=== PATIENT | male | born 1960 | race Caucasian/White ===

== ENCOUNTER 2020-09-15 14:01 | Emergency (ER) | payer BC ==
[2020-09-15 15:47] LABS: #Lymphocytes 0.5 thou/uL (1.20-3.40); #Monocytes 0.7 thou/uL (0.11-0.59); #Neutrophils 11.7 thou/uL (1.40-6.50); %Eosinophils 0.2 % (0.0-10.0); %Lymphocytes 3.6 % (21.0-51.0); %Monocytes 5.2 % (0.0-10.0); Hemoglobin 16.7 g/dL (14.0-18.0); Mean Corpuscular HGB CONC 33.9 g/dL (32.0-36.0); Mean Corpuscular Hemoglobin 31.6 pg (27.0-31.0); Mean Corpuscular Volume 93.4 fL (78.0-98.0); Mean Platelet Volume 7.7 fL (7.4-10.4); Platelet Count 226 thou/uL (130-400); RBC Distribution Width 12.5 % (11.5-14.5); Red Blood Cell (RBC) Count 5.28 mill/uL (4.70-6.10); White Blood Cell (WBC) Count 12.9 thou/uL (4.8-10.8)
[2020-09-15] MEDS ORDERED: Magnesium 2 GM/50 ML BAG (IN WATER) ONE (15:57)
[2020-09-15] MEDS ORDERED: Morphine 4 MG/ML VIAL ONE (15:57)
[2020-09-15] MEDS ORDERED: Ondansetron PF 4 MG/2 ML Vial ONE (15:57)
[2020-09-15] MEDS ORDERED: Promethazine HCl 25 MG/ML VIAL ONE (15:57)
[2020-09-15 16:10] LABS: ALT (SGPT) 34 U/L (8-55); AST (SGOT) 36 U/L (5-34); Albumin 4.6 g/dL (3.4-4.8); Alkaline Phosphatase 70 U/L (40-110); Anion Gap 17 mmol/L (10-20); BUN (Urea Nitrogen) 22 mg/dL (8.4-25.7); Bilirubin, Total 0.6 mg/dL (0.2-1.2); Calc. Creatinine Clearance 0 mL/min (70-130); Calcium 9.5 mg/dL (7.8-10.44); Carbon Dioxide 16 mmol/L (23-31); Chloride 111 mmol/L (98-107); Globulin 4.3 g/dL (2.4-3.5); Glucose 138 mg/dL (80-115); Potassium 4.1 mmol/L (3.5-5.1); Protein, Total 8.9 g/dL (5.8-8.1); Sodium 140 mmol/L (136-145)
[2020-09-15] MEDS ORDERED: Diphenoxylate HCl/Atropine Tablet PO SCH (18:30)
[2020-09-15 18:40] LABS: Bacteria/HPF None Seen HPF (None Seen); Bilirubin Negative (Negative); Blood, Urine Trace (Negative); Clarity Extra Turbid (Clear); Glucose, Urine (Dipstick) Normal (Negative); Ketone, Urine Negative (Negative); Leukocyte Negative Leu/uL (Negative); Nitrite Negative (Negative); Protein, Urine (Dipstick) 100 mg/dL (Neg-Trace); Specific Gravity, Urine 1.024 (1.002-1.036); Urobilinogen Normal mg/dL (Less than 2)
== END 2020-09-15 19:00 | disposition home or self-care (01) ==
LOC: ERS 14:01
DX: E86.0 Dehydration (principal); R19.7 Diarrhea, unspecified; I10 Essential (primary) hypertension; M10.9 Gout, unspecified; Z79.899 Other long term (current) drug therapy
CPT/HCPCS: 36415; 80053; 81003; 81015; 84484; 85025; 93005; 96365; 96375; J2270; J2405; J2550; J3475

== ENCOUNTER 2021-01-16 15:15 | Emergency (ER) | payer BC ==
[2021-01-16] MEDS ORDERED: Ondansetron PF 4 MG/2 ML Vial ONE (15:50)
[2021-01-16 16:07] LABS: #Lymphocytes 0.6 thou/uL (1.20-3.40); #Monocytes 0.5 thou/uL (0.11-0.59); #Neutrophils 8.1 thou/uL (1.40-6.50); %Eosinophils 0.5 % (0.0-10.0); %Lymphocytes 6.4 % (21.0-51.0); %Neutrophils 88.2 % (42.0-75.0); Hemoglobin 16.9 g/dL (14.0-18.0); Mean Corpuscular HGB CONC 34.5 g/dL (32.0-36.0); Mean Corpuscular Hemoglobin 31.5 pg (27.0-31.0); Mean Corpuscular Volume 91.4 fL (78.0-98.0); Mean Platelet Volume 8.6 fL (7.4-10.4); Platelet Count 139 thou/uL (130-400); RBC Distribution Width 12.8 % (11.5-14.5); Red Blood Cell (RBC) Count 5.37 mill/uL (4.70-6.10); White Blood Cell (WBC) Count 9.1 thou/uL (4.8-10.8)
[2021-01-16 16:23] LABS: ALT (SGPT) 15 U/L (8-55); AST (SGOT) 15 U/L (5-34); Albumin 4.2 g/dL (3.4-4.8); Alkaline Phosphatase 47 U/L (40-110); Anion Gap 15 mmol/L (10-20); BUN (Urea Nitrogen) 14 mg/dL (8.4-25.7); Bilirubin, Total 1.1 mg/dL (0.2-1.2); Calc. Creatinine Clearance 0 mL/min (70-130); Calcium 9.1 mg/dL (7.8-10.44); Carbon Dioxide 21 mmol/L (23-31); Chloride 107 mmol/L (98-107); Globulin 3.3 g/dL (2.4-3.5); Glucose 113 mg/dL (80-115); Lipase 21 U/L (8-78); Potassium 3.9 mmol/L (3.5-5.1); Protein, Total 7.5 g/dL (5.8-8.1); Sodium 139 mmol/L (136-145)
[2021-01-16] MEDS ORDERED: Carvedilol 3.125 MG TAB PO SCH (17:30)
== END 2021-01-16 17:30 | disposition home or self-care (01) ==
LOC: ERS 15:15
DX: A08.4 Viral intestinal infection, unspecified (principal); I10 Essential (primary) hypertension; Z79.899 Other long term (current) drug therapy
CPT/HCPCS: 80053; 83690; 85025; 96374; J2405